=== PATIENT | female | born 1990 | race African-American/Black ===

== ENCOUNTER 2018-07-10 21:37 | Emergency (ER) | payer MEDICARE ==
[~2018-07-10] VITALS: Ht 160 cm; Wt 93.4 kg
[2018-07-10 23:43] VITALS: BP 138/70
--- NOTE | 2018-07-11 00:08 | Diagnostic Imaging Report ---
L SPINE 2-3 VEWS - HOPD Comparison: None Clinical history: Back pain Findings: Slight dextrocurvature of the lumbar spine. Alignment is otherwise intact. Vertebral body heights and disc spaces are maintained. Impression: No acute bony abnormality Signed by: Dr Frida Santana MD on 07/11/2018 12:05 AM
== END 2018-07-11 00:15 | disposition home or self-care (01) ==
LOC: FSED 21:37
DX: R09.81 Nasal congestion (principal); J00 Acute nasopharyngitis [common cold]; N30.91 Cystitis, unspecified with hematuria; M54.5 Low back pain; I10 Essential (primary) hypertension
CPT/HCPCS: 72100; 80053; 81003; 81025; 85025; 87086; 87400; 99283